=== PATIENT | male | born 1985 | race Caucasian/White ===

== ENCOUNTER 2023-07-12 18:30 | Observation (INO) | payer OTHER ==
--- NOTE | 2023-07-12 18:45 | ED ---
Fall HPI - General Chief Complaint: Fall Stated Complaint: Left knee pain Source: patient, EMS Mode of arrival: EMS - History of Present Illness Initial Comments: Alexis is a 38-year-old male who presents ER today for evaluation of left knee pain. Patient reports that he got tangled up with his dog leash and fell onto his left knee. He noted his kneecap seem to be dislocated laterally. EMS was called the patient received 10 mg IV morphine and was brought to the ER for evaluation. Patient has no previous orthopedic injuries. Patient does admit to drinking alcohol today prior to injury. - Related Data Allergies Allergy/AdvReac Type Severity Reaction Status Date / Time No Known Allergies Allergy Verified 07/12/23 18:36 Review of Systems ROS Statement: Those systems with pertinent positive or pertinent negative responses have been documented in the HPI. ROS Other: All systems not noted in ROS Statement are negative. Past Medical History Past Medical History: No Reported History History of Any Multi-Drug Resistant Organisms: None Reported Past Surgical History: No Surgical Hx Reported Past Psychological History: No Psychological Hx Reported Smoking Status: Current every day smoker Past Alcohol Use History: Daily Past Drug Use History: Marijuana General Exam - General Exam Comments Initial Comments: Physical Exam GENERAL: Patient is well-developed and well-nourished. Patient is obviously in pain and agitated HENT: Normocephalic, Atraumatic. EYES: PERRL, EOMI PULMONARY: Unlabored respirations. CARDIOVASCULAR: There is a regular rate and rhythm without any murmurs gallops or rubs. Left foot is neurovascularly intact ABDOMEN: Soft and nontender with normal bowel sounds. SKIN: Skin is clear with no lesions or rashes and otherwise unremarkable. : Deferred NEUROLOGIC: Patient is alert and oriented x3. Moving all extremities spontaneously MUSCULOSKELETAL: The left knee Is laterally dislocated there is a significant joint effusion PSYCHIATRIC: Normal psychiatric evaluation. Limitations: no limitations Course Vital Signs 07/12/23 07/12/23 18:32 20:07 Temperature 97.7 F Pulse Rate 95 92 Respiratory 20 17 Rate Blood Pressure 122/73 124/78 O2 Sat by Pulse 100 98 Oximetry Medical Decision Making - Medical Decision Making Was pt. sent in by a medical professional or institution (, PA, ADMISSIONS OFFICER, urgent care, hospital, or fci...) When possible be specific @ -No Did you speak to anyone other than the patient for history (EMS, parent, family, police, friend...)? What history was obtained from this source @ -EMS Did you review nursing and triage notes (agree or disagree)? Why? @ -I reviewed and agree with nursing and triage notes Were old charts reviewed (outside hosp., previous admission, EMS record, old EKG, old radiological studies, urgent care reports/EKG's, fci records)? Report findings @ -No old charts were reviewed Differential Diagnosis (chest pain, altered mental status, abdominal pain women, abdominal pain men, vaginal bleeding, weakness, fever, dyspnea, syncope, headache, dizziness, GI bleed, back pain, seizure, CVA, palpatations, mental health)? @ -Differential includes patellar dislocation, fracture, knee dislocation EKG interpreted by me (3pts min.). @ -As above X-rays interpreted by me (1pt min.). @ -X-ray reveals a lateral patellar dislocation with likely fracture CT interpreted by me (1pt min.). @ -CT reveals a large joint effusion and no fracture dislocated patella U/S interpreted by me (1pt. min.). @ -None done What testing was considered but not performed or refused? (CT, X-rays, U/S, labs)? Why? @ -None What meds were considered but not given or refused? Why? @ -None Did you discuss the management of the patient with other professionals (professionals i.e. , PA, ADMISSIONS OFFICER, lab, RT, psych nurse, licensed clinical social worker, investment accounting clerk, teacher, philanthropy officer, case management manager)? Give summary @ -Discussed with Dr. Mendez orthopedic surgery Was smoking cessation discussed for >3mins.? @ -No Was critical care preformed (if so, how long)? @ -No Were there social determinants of health that impacted care today? How? (Homelessness, low income, unemployed, alcoholism, drug addiction, tr ansportation, low edu. Level, literacy, decrease access to med. care, [facility], rehab)? @ -No Was there de-escalation of care discussed even if they declined (Discuss DNR or withdrawal of care, Hospice)? DNR status @ -No What co-morbidities impacted this encounter? (DM, HTN, Smoking, COPD, CAD, Cancer, CVA, ARF, Chemo, Hep., AIDS, mental health diagnosis, sleep apnea, morbid obesity)? @ -None Was patient admitted / discharged? Hospital course, mention meds given and route, prescriptions, significant lab abnormalities, going to OR and other pertinent info. @ -Admit Patient was seen and evaluated, history is obtained from the patient and EMS. Patient appears to have a lateral patellar dislocation. Patient was given 1 mg of Dilaudid and the leg was hyperextended medial traction was applied to the patella, this cause significant pain for the patient and there was no movement of the patella. Imaging was then obtained revealed a dislocation with possible fracture, CT was obtained at the advice of Dr. Mendez and reviewed by Dr. Mendez as well as radiology. Dr. Mendez recommended the patient be made n.p.o. at midnight placed in observation plan for OR tomorrow for reduction under fluoros copy. Undiagnosed new problem with uncertain prognosis? @ -No Drug Therapy requiring intensive monitoring for toxicity (Heparin, Nitro, Insulin, Cardizem)? @ -No Were any procedures done? @ -No Diagnosis/symptom? @ -Patellar fracture dislocation Acute, or Chronic, or Acute on Chronic? @ -Acute Uncomplicated (without systemic symptoms) or Complicated (systemic symptoms)? @ -Default Side effects of treatment? @ -No Exacerbation, Progression, or Severe Exacerbation? @ -No Poses a threat to life or bodily function? How? (Chest pain, [place], ME, pneumonia, PE, COPD, DKA, ARF, appy, cholecystitis, CVA, Diverticulitis, Homicidal, Suicidal, threat to staff... and all critical care pts) @ -Unlikely - Lab Data Result diagrams: 07/12/23 20:56 07/12/23 20:56 Lab Results 07/12/23 07/12/23 07/12/23 Range/Units 20:55 20:56 20:56 WBC 9.0 (3.8-10.6) k/uL RBC 5.15 (4.30-5.90) m/uL Hgb 14.4 (13.0-17.5) gm/dL Hct 44.8 (39.0-53.0) % MCV 87.0 (80.0-100.0) fL MCH 28.0 (25.0-35.0) pg MCHC 32.2 (31.0-37.0) g/dL RDW 14.8 (11.5-15.5) % Plt Count 201 (150-450) k/uL MPV 9.8 Neutrophils % 72 % Lymphocytes % 20 % Monocytes % 5 % Eosinophils % 1 % Basophils % 0 % Neutrophils # 6.5 (1.3-7.7) k/uL Lymphocytes # 1.8 (1.0-4.8) k/uL Monocytes # 0.5 (0-1.0) k/uL Eosinophils # 0.1 (0-0.7) k/uL Basophils # 0.0 (0-0.2) k/uL PT 9.7 L (10.0-12.5) sec INR 0.9 (<1.2) APTT 20.2 L (22.0-30.0) sec Sodium (137-145) mmol/L Potassium (3.5-5.1) mmol/L Chloride (98-107) mmol/L Carbon Dioxide (22-30) mmol/L Anion Gap mmol/L BUN (9-20) mg/dL Creatinine (0.66-1.25) mg/dL Est GFR (CKD-EPI)AfAm (>60 ml/min/1.73 sqM) Est GFR (CKD-EPI)NonAf (>60 ml/min/1.73 sqM) Glucose (74-99) mg/dL Calcium (8.4-10.2) mg/dL Total Bilirubin (0.2-1.3) mg/dL AST (17-59) U/L ALT (4-49) U/L Alkaline Phosphatase (38-126) U/L Troponin I (0.000-0.034) ng/mL Total Protein (6.3-8.2) g/dL Albumin (3.5-5.0) g/dL Serum Alcohol mg/dL Blood Type A Positive Blood Type Confirm Blood Type Recheck No Previous Record Bld Type Recheck Status CABO Indicated Antibody Screen NEGATIVE Spec Expiration Date 07/15/2023235407/12/23 07/12/23 07/12/23 Range/Units 20:56 20:56 21:00 WBC (3.8-10.6) k/uL RBC (4.30-5.90) m/uL Hgb (13.0-17.5) gm/dL Hct (39.0-53.0) % MCV (80.0-100.0) fL MCH (25.0-35.0) pg MCHC (31.0-37.0) g/dL RDW (11.5-15.5) % Plt Count (150-450) k/uL MPV Neutrophils % % Lymphocytes % % Monocytes % % Eosinophils % % Basophils % % Neutrophils # (1.3-7.7) k/uL Lymphocytes # (1.0-4.8) k/uL Monocytes # (0-1.0) k/uL Eosinophils # (0-0.7) k/uL Basophils # (0-0.2) k/uL PT (10.0-12.5) sec INR (<1.2) APTT (22.0-30.0) sec Sodium 136 L (137-145) mmol/L Potassium 4.0 (3.5-5.1) mmol/L Chloride 110 H (98-107) mmol/L Carbon Dioxide 21 L (22-30) mmol/L Anion Gap 5 mmol/L BUN 10 (9-20) mg/dL Creatinine 0.69 (0.66-1.25) mg/dL Est GFR (CKD-EPI)AfAm >90 (>60 ml/min/1.73 sqM) Est GFR (CKD-EPI)NonAf >90 (>60 ml/min/1.73 sqM) Glucose 114 H (74-99) mg/dL Calcium 8.9 (8.4-10.2) mg/dL Total Bilirubin 0.5 (0.2-1.3) mg/dL AST 35 (17-59) U/L ALT 24 (4-49) U/L Alkaline Phosphatase 45 (38-126) U/L Troponin I <0.012 (0.000-0.034) ng/mL Total Protein 6.8 (6.3-8.2) g/dL Albumin 4.0 (3.5-5.0) g/dL Serum Alcohol <10 mg/dL Blood Type Blood Type Confirm A Positive Blood Type Recheck Bld Type Recheck Status Antibody Screen Spec Expiration Date Disposition Clinical Impression: Fracture, patella Disposition: ADMITTED IP TO THIS HOSP Condition: Stable Is patient prescribed a controlled substance at d/c from ED?: No
[2023-07-12] MEDS: HYDROmorphone 1 MG/ML 1 ML SYRINGE IVP STA (18:47)
--- NOTE | 2023-07-12 20:01 | XR ---
PROCEDURE: XR knee complete LT - 3V DATE AND TIME: 07/12/2023 7:07 PM CLINICAL INDICATION: PHH; deformity. Pain after trauma TECHNIQUE: Department protocol COMPARISON: None FINDINGS / IMPRESSION: Lateral view shows evidence of a small joint effusion in the suprapatellar bursa with indistinctness of the quadriceps tendon and evidence of a a quadriceps tendon avulsion fracture of the superior pole of the patella. No other manifestation of trauma. No focal osseous lesions.
--- NOTE | 2023-07-12 21:03 | CT ---
EXAMINATION TYPE: CT knee LT wo con with 3-D reconstruction at an independent workstation. DATE OF EXAM: 07/12/2023 COMPARISON: Same day radiographs HISTORY: tripped over dogs, twisting knee injury Technique: Departmental protocol. Automated exposure control for dose reduction was used. Total DLP: 166 mGycm FINDINGS / IMPRESSION: There is a large joint effusion, and the patella is completed dislocated laterally. There are three patella fracture fragments, the largest at the superomedial pole of the patella, the second largest immediately caudal to this fragment and within the joint effusion laterally, and the t hird measuring 3.5 mm and present dependently within the joint effusion laterally (axial image 53). The visualized distal femur, proximal tibia, and proximal fibula are intact.
[2023-07-12 21:08] LABS: Basophils % (A) 0 %; Eosinophils # (A) 0.1 k/uL (0-0.7); Eosinophils % (A) 1 %; HCT 44.8 % (39.0-53.0); HGB 14.4 gm/dL (13.0-17.5); Lymphocytes # (A) 1.8 k/uL (1.0-4.8); Lymphocytes % (A) 20 %; MCHC 32.2 g/dL (31.0-37.0); Mean Platelet Volume 9.8; Monocytes # (A) 0.5 k/uL (0-1.0); Monocytes % (A) 5 %; Neutrophils # (A) 6.5 k/uL (1.3-7.7); Neutrophils % (A) 72 %; Platelet Count 201 k/uL (150-450); RBC 5.15 m/uL (4.30-5.90); RDW 14.8 % (11.5-15.5)
[2023-07-12] MEDS ORDERED: ONDANSETRON 4 MG/2 ML VIAL IVP PRN (21:09)
[2023-07-12] MEDS ORDERED: NALOXONE 0.4 MG/ML 1 ML VIAL IV PRN (21:09)
[2023-07-12 21:18] LABS: INR 0.9 (<1.2); Prothrombin Time 9.7 sec (10.0-12.5)
[2023-07-12 21:24] LABS: ALT 24 U/L (4-49); AST 35 U/L (17-59); African American GFR (CKD) >90 (>60 ml/min/1.73 sqM); Alcohol <10 mg/dL; Alkaline Phosphatase 45 U/L (38-126); Blood Urea Nitrogen 10 mg/dL (9-20); Calcium 8.9 mg/dL (8.4-10.2); Carbon Dioxide 21 mmol/L (22-30); Glucose 114 mg/dL (74-99); Non-African American GFR(CKD) >90 (>60 ml/min/1.73 sqM); Total Bilirubin 0.5 mg/dL (0.2-1.3); Total Protein 6.8 g/dL (6.3-8.2)
[2023-07-12 21:29] LABS: Anion Gap 5 mmol/L; Chloride 110 mmol/L (98-107); Sodium 136 mmol/L (137-145)
[2023-07-12 21:34] LABS: Partial Thromboplastin Time 20.2 sec (22.0-30.0)
[2023-07-12] MEDS: HYDROmorphone 0.5 MG/0.5 ML SYRINGE IVP PRN (22:59)
[2023-07-12] MEDS: SODIUM CHLORIDE 0.9% 1,000 ML IV SCH (23:11)
[2023-07-12] MEDS: NICOTINE 14MG/24HR PATCH TRANSDERM SCH (23:11)
[2023-07-13 00:03] LABS: Amphetamine Screen,Urine Not Detected (NotDetected); Barbiturate Screen,Urine Not Detected (NotDetected); Benzodiazepines Screen,Urine Not Detected (NotDetected); Cocaine Screen,Urine Not Detected (NotDetected); Methadone Screen, Urine Not Detected (NotDetected); Opiate Screen,Urine Detected (NotDetected); Oxycodone Screen, Urine Not Detected (NotDetected); Phencyclidine Screen,Urine Not Detected (NotDetected); Tricyclic Antidepressant,Urine Not Detected (NotDetected); Urn Cannabinoid Scrn Detected (NotDetected)
[2023-07-13 06:24] VITALS: RESP 16
--- NOTE | 2023-07-13 07:40 | P.HPOR ---
History of Present Illness H&P Date: 07/13/23 Chief Complaint: Left knee pain The patient is a 38-year-old male who presents after injuring his left knee yesterday after twisting it in an altercation with several dogs. He notes after he twisted his knee [place] like it came out of place. He had 2 previous dislocations of his left patella treated conservatively. He was brought to the emergency room and attempted closed reduction was performed unsuccessfully. Review of Systems As per HPI Past Medical History Past Medical History: No Reported History History of Any Multi-Drug Resistant Organisms: None Reported Past Surgical History: No Surgical Hx Reported Past Psychological History: No Psychological Hx Reported Smoking Status: Current every day smoker Past Alcohol Use History: Daily Past Drug Use History: Marijuana Medications and Allergies Home Medications Medication Instructions Recorded Confirmed Type No Known Home Medications 07/13/23 07/13/23 History Allergies Allergy/AdvReac Type Severity Reaction Status Date / Time pollen extracts Allergy Unknown Verified 07/13/23 07:01 Physical Examination - Knee left Appearance: effusion Effusion grade: grade 3 Tenderness with palpation: anterior, peripatellar Pain: other (Marked guarding with limited range of motion secondary to pain) Results The patient is a well-developed well-nourished male who appears to be in moderate distress secondary to left knee pain. He is afebrile with stable vital signs. He has painless passive motion of his left hip. He has deformity of his left patella with lateral dislocation. Limited range of motion of the left knee is noted secondary to pain. His distal neurovascular appears intact in the left lower extremity. - Labs Labs: Abnormal Lab Results - Last 24 Hours (Table) 07/12/23 07/12/23 07/12/23 Range/Units 20:56 20:56 23:08 PT 9.7 L (10.0-12.5) sec APTT 20.2 L (22.0-30.0) sec Sodium 136 L (137-145) mmol/L Chloride 110 H (98-107) mmol/L Carbon Dioxide 21 L (22-30) mmol/L Glucose 114 H (74-99) mg/dL Urine Opiates Screen Detected H (NotDetected) U Marijuana (THC) Screen Detected H (NotDetected) H & H 07/12/23 Range/Units 20:56 Hgb 14.4 (13.0-17.5) gm/dL Hct 44.8 (39.0-53.0) % Coagulation 07/12/23 Range/Units 20:56 INR 0.9 (<1.2) Result Diagrams: 07/12/23 20:56 07/12/23 20:56 - Diagnostic results Knee CT: image reviewed (CT scan of the left knee shows lateral patellofemoral dislocation along with an avulsion fracture off the superior medial aspect of the patella.) Assessment and Plan Assessment: 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 We will also likely aspirate his hemarthrosis. Risks and benefits were discussed at length in layman's terms.
[2023-07-13] MEDS: SODIUM CHLORIDE 0.9% 1,000 ML IV ONE (08:29)
[2023-07-13 08:49] VITALS: TEMP 98.1
[2023-07-13] MEDS: HYDROmorphone 1 MG/ML 1 ML SYRINGE IVP PRN (08:50)
[2023-07-13] MEDS ORDERED: DEXAMETHASONE SOD PHOSPHATE 4 MG/ML 1 ML VIAL IM STA (08:54)
[2023-07-13] MEDS: DEXAMETHASONE SOD PHOSPHATE 4 MG/ML 1 ML VIAL IVP ONE (08:55)
[2023-07-13] MEDS: ONDANSETRON 4 MG/2 ML VIAL IVP ONE (08:56)
[2023-07-13] MEDS ORDERED: PROPOFOL 10 MG/ML 20 ML VIAL IV ONE (09:40)
[2023-07-13] MEDS ORDERED: fentaNYL (PF) 50 MCG/ML 2 ML AMP ONE (09:40)
[2023-07-13] MEDS ORDERED: KETAMINE HCL IN 0.9 % NACL 50 MG/5 ML SYRINGE ONE (09:40)
[2023-07-13] MEDS ORDERED: MIDAZOLAM 2 MG/2 ML VIAL ONE (09:40)
[2023-07-13] MEDS: BUPIVACAINE (PF) 0.25% 30 ML VIAL SQ ONE (09:56)
--- NOTE | 2023-07-13 10:13 | P.OP ---
Date of Procedure: 07/13/23 Preoperative Diagnosis: Recurrent left patellofemoral dislocation Postoperative Diagnosis: Same in addition to osteochondral fracture of the patella, left knee hemarthrosis Procedure(s) Performed: Closed reduction left patellofemoral dislocation with sedation Aspiration left knee hemarthrosis Anesthesia: [facility] [place] Surgeon: Fab Munroe Pathology: none sent Condition: stable Disposition: PACU Indications for Procedure: The patient is a 38-year-old male who presents after injuring his knee yesterday twisting it. He was seen in the emergency room and underwent attempted closed reduction of a left patellofemoral dislocation. This was unsuccessful. A discussion of the risks and benefits of closed reduction utilizing anesthesia was discussed. He opted to proceed. Risks and benefits were discussed. Operative Findings: As below Description of Procedure: The patient was brought to the operating room, and after induction of IV sedation, the left patellofemoral dislocation was then gently reduced fully extending the knee. After reduction, I examined the knee. Collaterals were stable, Vanda was negative, posterior drawer was negative. Patellar glide was 2-1/2 quadrants lateral and 2 quadrants medial. Fluoroscopy was used to aid in this and to check the adequacy of the reduction. An osteochondral fragment was noted as previously seen on CT scan. I prepped the left knee on the lateral side with ChloraPrep. 3 cc of 1% lidocaine was then injected. 100 cc of bloody fluid was aspirated. A knee immobilizer was placed. No complications were incurred. The patient was then awoken from sedation and transferred to the recovery room in good condition. No complications were incurred.
--- NOTE | 2023-07-13 10:32 | FL ---
Fluoroscopy INDICATION: Knee replacement FINDINGS: Fluoroscopy time: 11 seconds. Total dose area product (DAP) in uGy*m?, mGy*cm? (or similar): 0.2523 Images obtained: 0. IMPRESSION: 1. Documentation of fluoroscopy.
--- NOTE | 2023-07-13 10:33 | XR ---
Fluoroscopy INDICATION: Pain FINDINGS: Fluoroscopy time: 11.8 seconds. Total dose area product (DAP) in uGy*m?, mGy*cm? (or similar): 0.2523 Images obtained: 5. IMPRESSION: 1. Documentation of fluoroscopy.
[2023-07-13] MEDS: HYDROcodone/APAP 5-325MG 1 EACH TAB PO PRN (10:44)
--- NOTE | 2023-07-13 11:46 | P.DS ---
Providers Date of admission: 07/12/23 21:11 Expected date of discharge: 07/13/23 Attending physician: Fba Munroe Primary care physician: Stated None Hospital Course: Date of admission: 07/12/2023 Date of discharge: 07/13/2023 Admission diagnosis: Recurrent left patellofemoral dislocation Discharge diagnosis: same Attending physician: Dr. Munroe Surgical procedures: Closed reduction left patellofemoral dislocation with sedation Aspiration left knee hemarthrosis Brief history: Patient is a 38-year-old male with a history of recurrent left patellofemoral dislocation. At this point patient has failed conservative treatment measures and has opted to proceed with a elective closed reduction left patellofemoral dislocation with patient and aspiration left knee hemarthrosis. Hospital course: Patient was admitted to the hospital due to recurrent left patellofemoral dislocation. Patient was brought to the OR and closed reduction of patellofemoral dislocation was performed. Aspiration left knee hemarthrosis was performed. Patient was stable after surgery. Patient was placed in recovery and discharge home with crutches and knee immobilizer Discharge condition/disposition: Patient will be discharged home in stable condition. Discharge medications: Instructions are given on resumption of patient's normal daily medications per primary care recommendation, in addition patient will be prescribed [place]. Assessment: Recurrent left patellofemoral dislocation Procedures: Closed reduction left patellofemoral dislocation with sedation Aspiration left knee hemarthrosis Patient Condition at Discharge: Good Plan - Discharge Summary New Discharge Prescriptions: New HYDROcodone/APAP 5-325MG [[place] 5-325] 1 tab PO Q6HR PRN #18 tab PRN Reason: Pain Discharge Medication List HYDROcodone/APAP 5-325MG [[place] 5-325] 1 tab PO Q6HR PRN #18 tab 07/13/23 [Rx] Follow up Appointment(s)/Referral(s): None,Stated [Primary Care Provider] - 1-2 days Fab Munroe MD [STAFF PHYSICIAN] - 1 Week Ambulatory/Diagnostic Orders: Crutches [DME.AMB1] Location: None Selected Patient Instructions/Handouts: *Surgery [facility] - (Anesthesia) Discharge Instructions Outpatient Surgery, Patellar Dislocation (ED), Patellar Dislocation (DC), Patellar Dislocation (GEN) Activity/Diet/Wound Care/Special Instructions: 1. Weight-bear as tolerated with knee immobilizer on and use of crutches. Follow-up in office in [address] Munroe. Pain medication as needed. Discharge Disposition: HOME SELF-CARE
[2023-07-13 13:21] VITALS: BP 105/67; PULSE 75
== END 2023-07-13 14:42 | disposition home or self-care (01) ==
LOC: EC 18:30 → 4SSUR 21:11
PROVIDERS: ADMIT Orthopaedic Surgery; ATTEND Orthopaedic Surgery
DX: S82.012A Displaced osteochondral fracture of left patella, initial encounter for closed fracture (principal); X50.1XXA Overexertion from prolonged static or awkward postures, initial encounter; M22.02 Recurrent dislocation of patella, left knee; M25.062 Hemarthrosis, left knee; F17.200 Nicotine dependence, unspecified, uncomplicated
CPT/HCPCS: 20610; 27562; 96376 ×2; 96374; 99285; 36415; 86900; 86901; 80053; 84484; 85025; 85610; 85730; 86850; 80306; 73560; 73562; 73700; G0378 ×2; G0480; S4990; J1100; J2405; J1170 ×4; J0665; 80320